=== PATIENT | male | born 1990 | race Caucasian/White ===

== ENCOUNTER 2017-09-08 20:33 | Emergency (ER) | payer OTHER ==
[~2017-09-08] VITALS: Ht 182.9 cm; Wt 102.1 kg
[2017-09-08] MEDS ORDERED: FLEXERIL PO (21:35)
[2017-09-08] MEDS ORDERED: TRAMADOL 50 MG50 MG PO (21:46)
== END 2017-09-08 22:01 | disposition home or self-care (01) ==
LOC: ER 20:33
DX: M25.512 Pain in left shoulder (principal); Z88.0 Allergy status to penicillin